=== PATIENT | female | born 1985 | race Caucasian/White ===

== ENCOUNTER 2023-08-15 00:25 | Day surgery (SDC) | payer BC, SELFPAY ==
[2023-07-22 13:44] VITALS: BMI 30.7
--- NOTE | 2023-08-13 10:19 | SUR.PREOP ---
Patient called regarding upcoming procedure. Reviewed preop instructions, appointment times, and procedure prep.
[2023-08-15 10:17] VITALS: BP 121/80; PULSE 93; RESP 18; O2SAT 100; BMI 29.9
[2023-08-15] MEDS: LACTATED RINGERS 1,000 ML 150 ML IV CONT (10:24)
--- NOTE | 2023-08-15 10:28 | P.PNAN_ITS ---
Anes - Initial Pre Proc Eval Procedure: Operation Date: 08/15/23 11:30 Proposed Procedures p Esophagogastroduodenoscopy & Colonoscopy - Ra Juan MD Date/Time: 08/15/23 10:28 Surgeon: Ra Juan MD Pre Op Diagnosis: Parageusia,Mixed irritable bowel syndrome Patient Data Age: 37 Gender: F Height: 1.68 m Weight: 84 kg Last Vital Signs Pulse 93 08/15/23 10:17 Resp 18 08/15/23 10:17 BP 121/80 08/15/23 10:17 Pulse Ox 100 08/15/23 10:17 O2 Del Method Room Air 08/15/23 10:17 Allergies Allergy/AdvReac Type Severity Reaction Status Date / Time Penicillins Allergy Mild Unknown Verified 08/15/23 10:15 Home Medications Medication Instructions Recorded Confirmed Type No Home Medications 07/22/23 08/15/23 History Patient hx anesthesia problems: none Family hx anesthesia problems: none Results Review: All pre-operative results and documents have been reviewed as part of the pre- operative evaluation. [facility] Past Medical History Medical History (Updated 07/04/23 @ 10:15 by Natacha Lara APRN) Abdominal bloating Abnormal taste in mouth Altered bowel function Food intolerance in adult Mixed irritable bowel syndrome Tenesmus Family History Family History Father Hypertension Sibling Patient's sister is in good health Mother Family history of lupus erythematosus Social History Social History Smoking status: Never smoker Alcohol intake: never Substance use type: does not use Living arrangements: with family Spiritual care concerns: No Anes - Eval Final PreProcedure Day of Procedure 08/15/23 10:28 Patient weight: normal Heart: regular rate and rhythm Lungs: clear to auscultation Airway: Mallampati scale class II Neurological: alert and oriented Last oral intake: >/= 8 hours ASA classification: I Emergent: no Anesthetic plan: proceed Anesthesia type and monitoring: general GIVS and standard monitoring Results Review: All pre-operative results and documents have been reviewed as part of the pre- operative evaluation. Informed Consent: The patient's anesthetic plan and its attendant risks and benefits were discussed with the patient/family/POA. Questions were solicited and answers provided to the satisfaction of the patient/family/POA.
--- NOTE | 2023-08-15 10:36 | PM.HPGS ---
History of Present Illness History of Present Illness Consent: Risks, benefits, and alternatives have been discussed and questions answered. Patient agrees to proceed with procedure. Chief complaint: Parageusia,Mixed irritable bowel syndrome Narrative: Ibis Myers is a 37 year old female with bloating and abdominal discomfort after eating, also irregular bm, never had scopes. Food allergy test unrermarkable. Diet did not help. Review of Systems Constitutional: Constitutional: Denies headache(s) and Denies weakness Eyes: Eyes: Denies blurry vision ENT: Reports Normal hearing present, Denies headache(s) and Denies neck pain Cardiovascular: Cardiovascular: Denies chest pain and Denies dyspnea Respiratory: Respiratory: Denies dyspnea Gastrointestinal: Gastrointestinal: Reports no additional gastrointestinal complaints Genitourinary: Genitourinary: Denies dysuria Musculoskeletal: Musculoskeletal: Denies neck pain Integumentary/Breasts: Skin/Breast: Denies dry skin Neurologic: Reports Normal hearing present, Denies headache(s) and Denies weakness Psychiatric: Psychiatric: Denies anxiety Endocrine: Endocrine: Denies change in body appearance Hematologic/Lymphatic: Hematologic/Lymphatic: Denies easy bleeding Allergic/Immunologic: Allergic/Immunologic: Denies urticaria PMFSH Past Medical History Medical History (Updated 07/04/23 @ 10:15 by Natacha Lara APRN) Abdominal bloating Abnormal taste in mouth Altered bowel function Food intolerance in adult Mixed irritable bowel syndrome Tenesmus Family History Family History Father Hypertension Sibling Patient's sister is in good health Mother Family history of lupus erythematosus Social History Social History Smoking status: Never smoker Alcohol intake: never Substance use type: does not use Living arrangements: with family Spiritual care concerns: No Meds Home Medications and Allergies Home Medications Medication Instructions Recorded Confirmed Type No Home Medications 07/22/23 08/15/23 History Allergies Allergy/AdvReac Type Severity Reaction Status Date / Time Penicillins Allergy Mild Unknown Verified 08/15/23 10:15 Vital Signs Vital Signs - 24 hr 08/15/23 10:17 Pulse Rate 93 Respiratory Rate 18 Blood Pressure 121/80 Pulse Oximetry 100 Oxygen Delivery Room Air Exam Const: General: comfortable and no acute distress HENMT: Face/Nose/Sinus: Normal nares present Eyes: General: appearance normal, both eyes and all related structures Neck: Neck: no JVD Resp: Auscultation: clear to auscultation bilaterally Cardio: Rate: regular rate Rhythm: regular rhythm GI: Inspection: non-distended GI Palp: Yes Soft to palpation Skin: General skin exam: normal color Neuro: General: gait normal Speech: normal speech Extrem: General: normal to inspection Psych: Mental Status: mental status grossly normal Assessment and Plan Assessment and plan (1) Altered bowel function: Code(s): R19.8 - Other specified symptoms and signs involving the digestive system and abdomen Status: Acute (2) Abdominal bloating: Code(s): R14.0 - Abdominal distension (gaseous) Status: Acute Assessment and Plan: egd with bx (3) Mixed irritable bowel syndrome: Code(s): K58.2 - Mixed irritable bowel syndrome Status: Acute Assessment and Plan: colonoscopy
--- NOTE | 2023-08-15 10:46 | SUR.OPER ---
Addendum entered by Ibis Lopez RN 08/15/23 10:58: Colonoscopy start 1057 Original Note: EGD start 1047 end 1050, Colonoscopy start 1056
[2023-08-15 11:08] VITALS: BP 89/48; PULSE 72; RESP 15; O2SAT 98
[2023-08-15 11:18] VITALS: BP 106/65; PULSE 62; RESP 20; O2SAT 100
[2023-08-15 11:28] VITALS: BP 95/60; PULSE 55; RESP 16; O2SAT 100
== END 2023-08-15 11:39 | disposition home or self-care (01) ==
PROVIDERS: PCP Nurse Practitioner Family; Visit Provider Internal Medicine Gastroenterology
PROC: 0DJ08ZZ Inspection of Upper Intestinal Tract, Via Natural or Artificial Opening Endoscopic (ICD-10-PCS; CPT 43235; principal; 2023-08-15 11:30)
DX: R19.8 Other specified symptoms and signs involving the digestive system and abdomen (principal); K57.30 Diverticulosis of large intestine without perforation or abscess without bleeding; R43.2 Parageusia; K58.2 Mixed irritable bowel syndrome
CPT/HCPCS: 43239; 45380; 88305; J2704; J7120